=== PATIENT | female | born 1975 | race Caucasian/White ===

== ENCOUNTER → 2017-08-09 | Outpatient (CLI) | payer OTHER ==
[~2017-08-09] MED LIST: ADRENACLIC0.15 MG/0. IM; CIPRO HC OTIC S10 ML OT
[2017-08-09 07:57] LABS: ABSOLUTE BASOPHILS 0.1 thou/uL (0.0-0.2); ABSOLUTE EOSINOPHILS 0.1 thou/uL (0.0-0.7); ABSOLUTE LYMPHOCYTES 1.4 thou/uL (0.8-5.3); ABSOLUTE MONOCYTES 0.4 thou/uL (0.0-1.2); BASOPHILS 0.8 %; HEMATOCRIT 40.9 % (37.0-47.0); HEMOGLOBIN 13.5 gm/dL (12.0-15.0); LYMPHOCYTES 20.6 %; MCH 29.7 pg (26.0-34.0); MCV 90.1 fL (80.0-100.0); MONOCYTES 5.4 %; MPV 9.6 fl. (7.2-11.1); NUCLEATED RBCS 0 /100WBC; PLATELET COUNT* 235 thou/uL (150-400); POLYS 72.2 %; RBC 4.54 mil/uL (4.20-5.00); RDW-CV 13.3 % (10.5-14.5); WBC 6.9 thou/uL (4.0-11.0)
[2017-08-09 08:20] LABS: ALBUMIN 3.7 g/dL (3.4-5.0); ALKALINE PHOSPHATASE 63 U/L (46-116); ANION GAP 7 mmol/L (7-16); BUN 17 mg/dL (7-18); CHLORIDE 105 mmol/L (98-107); CHOLESTEROL 183 mg/dL (<200); CO2 29 mmol/L (21-32); CREATININE 0.9 mg/dL (0.6-1.3); GLUCOSE 228 mg/dL (70-99); HDL CHOLESTEROL 39 mg/dL (>40); LDL CHOLESTEROL 129 mg/dL (<100); POTASSIUM 4.3 mmol/L (3.5-5.1); SGOT 13 U/L (15-37); SGPT 37 U/L (30-65); SODIUM 141 mmol/L (136-145); TC:HDL 4.7 Ratio (Not establshd); TOTAL BILIRUBIN 0.5 mg/dL (<0.1-1.0); TOTAL PROTEIN 7.2 g/dL (6.4-8.2); TRIGLYCERIDE 79 mg/dL (<150); VLDL 16 mg/dL (<40)
[2017-08-09 08:22] LABS: SERUM ASSESSMENT Clear
[2017-08-09 17:11] LABS: GLYCOHEMOGLOBIN (HGB A1C) 7.6 % (4.8-5.6)
== END ==
LOC: M.LAB 07:35
PROVIDERS: Family Medicine
DX: Z00.01 Encounter for general adult medical examination with abnormal findings (principal); I10 Essential (primary) hypertension; E11.65 Type 2 diabetes mellitus with hyperglycemia; R53.83 Other fatigue

== ENCOUNTER → 2018-02-21 | Outpatient (CLI) | payer OTHER | LOC: M.RAD 15:04 | DX: R92.8 Other abnormal and inconclusive findings on diagnostic imaging of breast (principal); N63.20 Unspecified lump in the left breast, unspecified quadrant ==

== ENCOUNTER → 2018-02-22 | Outpatient (CLI) | payer OTHER | LOC: M.ULTRA 10:13 | DX: N63.22 Unspecified lump in the left breast, upper inner quadrant (principal) ==

== ENCOUNTER → 2018-02-24 | Outpatient (CLI) | payer OTHER ==
--- NOTE | 2018-03-05 09:07 | PATH ---
[address] [address] PATHOLOGY RPT PROCEDURE Name: MARTINEZANAM Narayan Room: [facility] Marylu#: [id number] Admission: 02/24/18 Date of : 73 Discharge: Report #: [id number] Path Case #: [id number] [facility] Accession Number: [id number] . 01 Material submitted: . LEFT BREAST CALCIFICATIONS . 01 Clinical history: . Left breast stereotactic biopsy for calcifications . 02 Diagnosis: Left breast calcifications, stereotactic biopsy: - Benign breast tissue with cystic apocrine change, mild chronic inflammation and luminal calcifications, negative for atypia. See comment. . (NORMAN:mml; 02/28/18) QL/02/28/2018 . 02 Comment: Reviewed with Dr. Cam who agrees with the diagnosis. . (NORMAN:mml; 02/28/18) . 02 Electronically signed: . Johnny Mantilla MD, Pathologist NPI- [id number] . 01 Gross description: . Received in formalin labeled "Anam Martinez, left breast stereotactic biopsy," are multiple needle cores of yellow-montiel fibrofatty tissue measuring 2.1 x 1.8 x 0.6 cm in aggregate dimensions. Also received is a plastic cassette containing multiple cores of yellow-montiel fibrofatty tissue measuring 2.4 x 1.2 x 0.4 cm in aggregate dimensions. The tissue in the cassette is transferred to cassette A3, and the remaining tissue is submitted in its entirety in cassettes A1 and A2. The cold ischemic time is 5 minutes. The total formalin fixation time is 29 hours and 50 minutes. (TSD; 02/24/2018) TOB/TOB . 02 Pathologist provided ICD-10: N61.0 . 02 CPT . 598632 Specimen Comment: A courtesy copy of this report has been sent to Specimen Comment: [phone], , [place] [address] PATHOLOGY RPT PROCEDURE Name: ANAM MARTINEZ [id number] Admission: 02/24/18 Date of : 73 Discharge: Report #: [id number] Path Case #: [id number] Specimen Comment: Report sent to ,DR MEJIA / DR PARKER Specimen Comment: A duplicate report has been generated due to demographic updates. Performed at: 01 [facility] [place] [address], [place], [place] [id number] MD Shola Dougherty MD Phone: [phone] Performed at: 02 [facility] [place] [address] [address], [place], [place] [id number] MD Johnny Mantilla MD Phone: [phone]
== END | disposition home or self-care (01) ==
LOC: M.RAD 12:10
DX: D24.2 Benign neoplasm of left breast (principal); N61.0 Mastitis without abscess; R92.1 Mammographic calcification found on diagnostic imaging of breast; Z88.0 Allergy status to penicillin; Z91.040 Latex allergy status; Z79.899 Other long term (current) drug therapy; Z98.890 Other specified postprocedural states

== ENCOUNTER 2018-04-09 15:55 | Emergency (ER) | payer OTHER ==
[~2018-04-09] VITALS: Ht 167.6 cm; Wt 72.6 kg
[2018-04-09] MEDS ORDERED: HYZAAR 50-12.51 EACH PO (16:00)
[2018-04-09 16:15] LABS: ABSOLUTE EOSINOPHILS 0.1 thou/uL (0.0-0.7); ABSOLUTE LYMPHOCYTES 2.2 thou/uL (0.8-5.3); ABSOLUTE MONOCYTES 0.3 thou/uL (0.0-1.2); BASOPHILS 0.3 %; EOSINOPHILS 1.1 %; HEMATOCRIT 40.2 % (37.0-47.0); HEMOGLOBIN 13.5 gm/dL (12.0-15.0); LYMPHOCYTES 28.7 %; MCH 30.2 pg (26.0-34.0); MCHC 33.6 g/dL (28.0-37.0); MCV 89.9 fL (80.0-100.0); MONOCYTES 4.6 %; MPV 9.8 fl. (7.2-11.1); NUCLEATED RBCS 0 /100WBC; PLATELET COUNT* 241 thou/uL (150-400); POLYS 65.3 %; RBC 4.47 mil/uL (4.20-5.00); RDW-CV 13.2 % (10.5-14.5); WBC 7.6 thou/uL (4.0-11.0)
[2018-04-09 16:26] LABS: PROTIME 10.7 Seconds (9.20-11.50)
[2018-04-09 16:32] LABS: ANION GAP 10 mmol/L (7-16); BUN 15 mg/dL (7-18); CHLORIDE 103 mmol/L (98-107); CO2 25 mmol/L (21-32); GLUCOSE 208 mg/dL (70-99); POTASSIUM 3.2 mmol/L (3.5-5.1); SODIUM 138 mmol/L (136-145)
[2018-04-09 16:41] LABS: ALBUMIN 3.8 g/dL (3.4-5.0); ALKALINE PHOSPHATASE 83 U/L (46-116); LIPASE 139 U/L (73-393); NT-PRO BRAIN NAT PEPTIDE 43 pg/mL (<300); SGOT 18 U/L (15-37); SGPT 45 U/L (30-65); TOTAL BILIRUBIN 0.7 mg/dL (<0.1-1.0); TOTAL PROTEIN 6.9 g/dL (6.4-8.2); TROPONIN-I LEVEL <0.06 ng/mL (<0.06)
[2018-04-09] MEDS ORDERED: COREG6.25 MG PO (16:53)
[2018-04-09 17:07] VITALS: BP 111/73
--- NOTE | 2018-04-10 15:38 | EKG ---
[place] [address] ELECTROCARDIOGRAM REPORT Name: ANAM MARTINEZ Room: [facility]#: [id number] Admission: 04/09/18 Attend Phys: Discharge: 04/09/18 Date of : 73 Report #: [id number] THIS REPORT FOR: //name// [facility] ED Test Date: 2018-04-09 Test Time: 15:58:53 Pat Name: ANAM MARTINEZ Department: Room: Gender: F Financial Project Manager: Jerry SMITH : 1975 Requested By: Roshan Hui Order Number: [id number] MD: Hemanth Hansen Measurements Intervals [place] Rate: 128 P: 22 MN: 131 QRS: 6 QRSD: 78 T: 47 QT: 323 QTc: 472 Interpretive Statements Sinus tachycardia ST depression, probably rate related No previous ECG available for comparison Electronically Signed On 04-10-2018 15:37:56 AD COMPOSITOR by Hemanth Hansen [email or web address] <ELECTRONICALLY SIGNED> By: Hemanth Hansen MD, [facility] 04/10/18 1537 1558 1558 Hemanth Hansen MD, FACC /EPI
[2018-04-10 18:07] LABS: T3 UPTAKE 28 % (24-39)
== END 2018-04-09 17:08 | disposition home or self-care (01) ==
LOC: M.ERS 15:55
PROVIDERS: Emergency Medicine
DX: R07.89 Other chest pain (principal); R00.0 Tachycardia, unspecified; I10 Essential (primary) hypertension; Z88.0 Allergy status to penicillin; Z91.040 Latex allergy status; Z88.1 Allergy status to other antibiotic agents; Z86.14 Personal history of Methicillin resistant Staphylococcus aureus infection

== ENCOUNTER → 2018-06-13 | Outpatient (CLI) | payer OTHER ==
[~2018-06-13] MED LIST changes: +COREG6.25 MG PO; +HYZAAR 50-12.51 EACH PO
[2018-06-13 23:06] LABS: GLYCOHEMOGLOBIN (HGB A1C) 8.2 % (4.8-5.6)
== END ==
LOC: M.LAB 15:12
PROVIDERS: Family Medicine
DX: E11.65 Type 2 diabetes mellitus with hyperglycemia (principal)

== ENCOUNTER → 2018-08-02 | Outpatient (CLI) | payer OTHER ==
[~2018-08-02] MED LIST changes: +FLECAINIDE ACET50 M1 PO; +JARDIANCE10 MG PO; +LOPRESSOR50 PO; +PRADAXA150 MG PO
[2018-08-02 12:05] VITALS: BP 115/70
[2018-08-02 12:30] VITALS: BP 136/70
[2018-08-02 12:35] VITALS: BP 131/80
[2018-08-02 12:36] VITALS: BP 117/60
[2018-08-02 12:39] VITALS: BP 122/74
[2018-08-02 12:44] VITALS: BP 118/76
--- NOTE | 2018-08-02 15:26 | TEE ---
[place] [address] TRANSESOPHAGEAL ECHOCARDIOGRAM Name: ANAM MARTINEZ Room: [facility]#: [id number] Admission: 08/02/18 Attend Phys: Hemanth Hansen, Discharge: Date of : 73 Date of Service: 08/02/18 1526 Report #: [id number] THIS REPORT FOR: //name// APPROVED REPORT Study performed: 08/02/2018 12:31:34 EXAM: Transesophageal Echocardiogram Patient Location: Out-Patient Status: routine BSA: 1.84 HR: 67 bpm BP: 136/70 mmHg Rhythm: NSR Other Information Study Quality: Good Indications Atrial Fibrillation Echo Enhancing Agent Indication: Rule out Shunt Agent(s) / Amount(s) Used: Agitated Saline 10 cc Procedure After obtaining informed consent, patient underwent transesophageal echo in the [employer]. Type of Sedation : Conscious Sedation Sedation was administered by Arianna Hung RN. Sedation start time: 1230 Case end Time: 1245 Sedation was achieved intravenously with: Versed (5) Fentanyl (100) Transesophageal probe was inserted and advanced into esophagus without difficulty by Hemanth Hansen MD, FACC. Echo enhancement indication: R/O Septal defect. Echo enhancement agent administered: Agitated Saline The JOANNA was performed without complications. Throughout the procedure, the blood pressure, pulse oximetry, cardiac rhythm, and rate were monitored. The patient tolerated the procedure without adverse effects. Recovery from conscious sedation was uneventful and vital signs were stable. Left Ventricle [place] [id number] TRANSESOPHAGEAL ECHOCARDIOGRAM Name: JUANYINGPONCHO RODRIGUEZ [id number] Admission: 08/02/18 Attend Phys: Hemanth Hansen, Discharge: Date of : 73 Date of Service: 08/02/18 1526 Report #: [id number] The left ventricle is normal size. There is normal LV segmental wall motion. There is normal left ventricular wall thickness. Left ventricular systolic function is normal. LVEF is 60-65%. Right Ventricle The right ventricle is normal size. The right ventricular systolic function is normal. Atria The left atrium size is normal. No thrombus is visualized in the left atrium or appendage. Small PFO is noted. The right atrium size is normal. Aortic Valve The aortic valve is normal in structure. No aortic regurgitation is present. There is no aortic valvular stenosis. Mitral Valve The mitral valve is normal in structure. Trace to mild mitral regurgitation. No evidence of mitral valve stenosis. Tricuspid Valve The tricuspid valve is normal in structure. There is no tricuspid valve regurgitation noted. Pulmonic Valve The pulmonary valve is normal in structure. There is no pulmonic valvular regurgitation. Great Vessels The aortic root is normal in size. Pericardium There is no pericardial effusion. <Conclusion> The left ventricle is normal size. There is normal left ventricular wall thickness. Left ventricular systolic function is normal. LVEF is 60-65%. [place] [address] TRANSESOPHAGEAL ECHOCARDIOGRAM Name: ANAM MARTINEZ Room: [facility]#: [id number] Admission: 08/02/18 Attend Phys: Hemanth Hansen, Discharge: Date of : 73 Date of Service: 08/02/18 1526 Report #: [id number] No thrombus is visualized in the left atrium or appendage. Trace to mild mitral regurgitation. <ELECTRONICALLY SIGNED> By: Hemanth Hansen MD, FACC 08/02/18 1526 1526 1526 Hemanth Hansen MD, FACC /INF
== END | disposition home or self-care (01) ==
LOC: M.CL 11:50
DX: I34.0 Nonrheumatic mitral (valve) insufficiency (principal); I48.91 Unspecified atrial fibrillation; I10 Essential (primary) hypertension; E11.9 Type 2 diabetes mellitus without complications; E78.5 Hyperlipidemia, unspecified; K21.9 Gastro-esophageal reflux disease without esophagitis; Z91.040 Latex allergy status; Z79.899 Other long term (current) drug therapy; Z79.01 Long term (current) use of anticoagulants; Z90.49 Acquired absence of other specified parts of digestive tract; Z90.711 Acquired absence of uterus with remaining cervical stump; Z88.8 Allergy status to other drugs, medicaments and biological substances; Z98.890 Other specified postprocedural states; Z88.0 Allergy status to penicillin; Z83.3 Family history of diabetes mellitus

== ENCOUNTER 2018-08-15 18:43 | Inpatient (IN) | payer OTHER ==
[~2018-08-15] VITALS: Ht 170.2 cm; Wt 73.5 kg
--- NOTE | ~2018-08-15 | CON ---
[address] [address] CONSULTATION Name: ANAM MARTINEZ Room: [address] IN M.R.#: [id number] Admission: 08/15/18 Attend Phys: Júnior Nelson MD Discharge: 08/16/18 Date of : 73 Report #: [id number] THIS REPORT FOR: //name// CC: Júnior Cancino DATE OF SERVICE: 08/16/2018 HISTORY OF PRESENT ILLNESS: This is a 42-year-old female patient who was evaluated by me for headache and visual disturbances. The patient has a longstanding history of migraine headache. They were not very frequent, but when they occurred they were headache associated with some visual disturbances. She underwent a cardiac ablation and then she had a severe headache on the right side. She also had visual disturbances and visual disturbances consisted of hemianopsia. She was also seeing some spots in front of the eyes. Her atrial fibrillation was diagnosed in June and since then, she has been on anticoagulation. Her symptoms are stable, but has not resolved. Headache is better, but she still continued to have what looks like visual disturbances. REVIEW OF SYSTEMS: Indicate she had hysterectomy in the past. She had atrial fibrillation with ablation. One time, she had a kidney stone, another time she had exploratory laparotomy. She does have a history of migraine in the past. She also has a history of hypertension. This was her relevant 14-point review of system. PAST MEDICAL HISTORY: Positive for migraine. FAMILY HISTORY: Negative for early age stroke. SOCIAL HISTORY: She indicates she works here and she does not abuse alcohol. PHYSICAL EXAMINATION: Indicate she is alert. She is responsive. She can follow simple commands. Her speech and concentration looks unremarkable. Cranial nerve examination 2-12 indicates she can count fingers and visual field, but she says it takes much more effort to count finger in the right visual field than the left visual field. Her strength, sensation, reflexes and tones are symmetrical. Cardiac examinations appear to be unremarkable at this stage. She does have a history of atrial fibrillation, no respiratory difficulty or rhonchi was noticed. Blood pressure is 117/77, respiration is 14, pulse is 68, and temperature is 98.2. Pulses are palpable. Her white count is 6.7. She is reasonably well-developed individual and she does not have a thyroid mass. She has no ENT problems. It looks like she had only a perfusion study in the Emergency Room and that was unremarkable. Although statistically the most common cause for this will be recurrence of migraine, but a posterior [place] [address] CONSULTATION Name: ANAM MARTINEZN Room: [address] IN [facility].#: [id number] Admission: 08/15/18 Attend Phys: Júnior Nelson MD Discharge: 08/16/18 Date of : 73 Report #: [id number] excluded because of the patient's history of persistent visual deficit and that is one of the common site for embolization. She is anticoagulated and that is protective against any stroke, but I think we need to exclude that. An ophthalmology etiology also needs to be excluded in this patient. RECOMMENDATIONS: I discussed with the patient the situation. She understands that. We will go ahead and do an MRI and MRA to exclude any pathology in that regard. I ordered that workup. I also told her that she needs an ophthalmology examination. 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 If she is dismissed today, she should have an ophthalmology examination today and we can get her that appointment. Otherwise, she will need that whenever it can be arranged. The patient understands all of this and is agreeable with that plan. By: [id number] [id number] Worrell MD /patricia
[2018-08-15 19:01] VITALS: BP 133/84
[2018-08-15 19:47] LABS: ABSOLUTE BASOPHILS 0.1 thou/uL (0.0-0.2); ABSOLUTE EOSINOPHILS 0.1 thou/uL (0.0-0.7); ABSOLUTE LYMPHOCYTES 2.2 thou/uL (0.8-5.3); ABSOLUTE MONOCYTES 0.4 thou/uL (0.0-1.2); EOSINOPHILS 1.9 %; HEMATOCRIT 36.5 % (37.0-47.0); MCH 29.9 pg (26.0-34.0); MCHC 32.7 g/dL (28.0-37.0); MCV 91.3 fL (80.0-100.0); MPV 9.7 fl. (7.2-11.1); NUCLEATED RBCS 0 /100WBC; PLATELET COUNT* 204 thou/uL (150-400); POLYS 59.1 %; RDW-CV 13.4 % (10.5-14.5); WBC 6.7 thou/uL (4.0-11.0)
[2018-08-15 19:51] LABS: APTT 28.5 Seconds (25.0-31.3); PROTIME 10.2 Seconds (9.20-11.50)
[2018-08-15 20:01] LABS: ALBUMIN 3.7 g/dL (3.4-5.0); CALCIUM 8.7 mg/dL (8.5-10.1); CREATININE 1.1 mg/dL (0.6-1.3); POTASSIUM 3.6 mmol/L (3.5-5.1); TOTAL BILIRUBIN 0.2 mg/dL (<0.1-1.0); TOTAL PROTEIN 6.9 g/dL (6.4-8.2)
[2018-08-15 20:03] LABS: TROPONIN-I LEVEL 1.24 ng/mL (<0.06)
--- NOTE | 2018-08-15 22:11 | NUR ---
PT UP TO DATE ON POC. AT BEDSIDE. VSS. EMPLOYEE RELATIONS SPECIALIST UPDATED PT ON LAB WORK AND ADDITIONAL TESTING ORDERED
--- NOTE | 2018-08-15 23:15 | NUR ---
PT UP TO DATE ON POC.
[2018-08-16 00:28] VITALS: BP 121/70
--- NOTE | 2018-08-16 01:27 | NUR ---
ASSUMED CARE OF PATIENT FROM ER. UP AD CHRIST, NO S/S DISTRESS. SAYS THE VISION CHANGES ARE INTERMITTENT. LASTING FOR LONG 15 MINUTES. NO OTHER CONCERNS AT THIS TIME. GROIN SITE FROM ABLATION HAS NEW DRESSING APPLIED BY PATIENT AT HOME. C/D/I. WAITING ON REPEAT TROPONIN. WILL CONTINUE TO MONITOR.
[2018-08-16 04:00] VITALS: BP 123/69
[2018-08-16 08:00] VITALS: BP 117/77
--- NOTE | 2018-08-16 11:40 | NUR ---
Nutrition: Consult received for diet instruction. Labs, RX, Hx noted. Wt: 161#. Alb 3.7. Spoke with RN Abimael - feel pt doesn't need any diet instruction at this time. Pt appears at low nutrition risk. RD available if needed.
[2018-08-16 13:04] VITALS: BP 128/77
[2018-08-16] MEDS ORDERED: TOPROL XL50 MG PO (15:33)
[2018-08-16 15:44] VITALS: BP 128/77
--- NOTE | 2018-08-16 15:53 | EKG ---
[place] [address] ELECTROCARDIOGRAM REPORT Name: ANAM MARTINEZ Room: [address] ADM IN .R.#: [id number] Admission: 08/15/18 Attend Phys: Júnior Nelson MD Discharge: Date of : 73 Report #: [id number] THIS REPORT FOR: //name// [facility] ED Test Date: 2018-08-15 Test Time: 18:57:54 Pat Name: ANAM MARTINEZ Department: Room: [facility] Gender: F Management Tech: : 1975 Requested By: Valeria Garcia Order Number: [id number] MD: Hemanth Hansen Measurements Intervals [place] Rate: 79 P: 42 CO: 182 QRS: -10 QRSD: 96 T: 185 QT: 492 QTc: 565 Interpretive Statements Sinus rhythm Nonspecific T abnormalities, lateral leads Prolonged QT interval Baseline wander in lead(s) V6 Compared to ECG 04/09/2018 15:58:53 T-wave abnormality now present Prolonged QT interval now present Sinus tachycardia no longer present ST (T wave) deviation no longer present Electronically Signed On 08-16-2018 15:53:35 CDT by Hemanth Hansen [email or web address] <ELECTRONICALLY SIGNED> By: Hemanth Hansen MD, FAC 08/16/18 1553 1857 185 Hemanth Hansen MD, [facility] /EPI
--- NOTE | 2018-08-16 15:54 | EKG ---
[place] [address] ELECTROCARDIOGRAM REPORT Name: ANAM MARTINEZ Room: [address] ADM IN .R.#: [id number] Admission: 08/15/18 Attend Phys: Júnior Nelson MD Discharge: Date of : 73 Report #: [id number] THIS REPORT FOR: //name// [facility] ED Test Date: 2018-08-15 Test Time: 23:44:17 Pat Name: ANAM MARTINEZ Department: Room: [facility] Gender: F Lead Customer Service Representative: NAVI : 1975 Requested By: Cassidy Maradiaga Order Number: [id number] MD: Hemanth Hansen Measurements Intervals [place] Rate: 74 P: 42 NC: 176 QRS: -15 QRSD: 99 T: 44 QT: 432 QTc: 480 Interpretive Statements Sinus rhythm Borderline left axis deviation Borderline T wave abnormalities Compared to ECG 04/09/2018 15:58:53 T-wave abnormality now present Sinus tachycardia no longer present ST (T wave) deviation no longer present Electronically Signed On 08-16-2018 15:53:55 CDT by Hemanth Hansen [email or web address] <ELECTRONICALLY SIGNED> By: Hemanth Hansen MD, FAC 08/16/18 1553 2344 2344 Hemanth Hansen MD, [facility] /EPI
[2018-08-16] MEDS ORDERED: JARDIANCE25 MG PO (16:34)
--- NOTE | 2018-08-16 16:55 | NUR ---
ORDER RECEIVED TO DISCHARGE PATIENT HOME TO SELF. IV AND TELEMTRY PACK REMOVED. EXTENSIVE TIME SPENT WITH MD AND PATINET TO ENSURE ACCURATE HOME MEDICATION LIST. HOURLY ROUNDING COMPLETED FOR PATIENT SAFETY AND PATIET INNOAPPARENT SIGNS OF DISTRESS A TTIME OF DISCHARGE. PATIENT CHOSE TO AMBULATE TO AWAITING CARE WITH SPOUSE PRESENT AND ESCORTED BY RN. DC TIME OF 16:50
--- NOTE | 2018-08-17 09:59 | CON ---
[address] [address] CONSULTATION Name: JUANANAM JENNIFER Room: [address] IN M.R.#: [id number] Admission: 08/15/18 Attend Phys: Júnior Nelson MD Discharge: 08/16/18 Date of : 73 Report #: [id number] THIS REPORT FOR: //name// CC: Júnior Cancino DO CARDIOLOGY CONSULTATION INDICATION: Elevated troponin. HISTORY OF PRESENT ILLNESS: The patient is a very pleasant 42-year-old white female, well known to myself. She had ablation for atrial fibrillation/atrial tachycardia on 08/12/2018. Postoperatively, she had a headache with some visual field deficits and was seen in the Emergency Room. Neurologic evaluation has been unremarkable. She still has the headache. Her visual field deficits are improving. She, in this setting, had an elevated troponin of 1.48. EKG showed sinus rhythm without acute ST or T-wave abnormalities. She has a fullness in her midsternal region. She is not having russell chest pain. The discomfort has been persistent. She is without other cardiac complaints at this time. PAST MEDICAL HISTORY: 1. Atrial fibrillation/atrial tachycardia, status post ablation. 2. Chronic anticoagulation. 3. Diabetes type 2. 4. History of hysterectomy. 5. Left hip repair. 6. Cholecystectomy. 7. Tonsillectomy. 8. Kidney stone removal. 9. D and C. 10. Exploratory laparotomy. 11. GERD. FAMILY HISTORY: Noncontributory. SOCIAL HISTORY: The patient is a lifelong nonsmoker. She does not drink alcohol. ALLERGIES: BIAXIN, LATEX AND PENICILLIN. CURRENT MEDICATIONS: Flecainide 50 mg p.o. b.i.d., Dabigatran 150 mg p.o. b.i.d., metoprolol tartrate 50 mg p.o. b.i.d. and Jardiance 10 mg p.o. b.i.d. PHYSICAL EXAMINATION: VITAL SIGNS: Stable. Blood pressure 128/77 and pulse 71 and regular. GENERAL: This is a pleasant lady in no distress[place] [address] CONSULTATION Name: ANAM MARTINEZ Room: [address]#: [id number] Admission: 08/15/18 Attend Phys: Júnior Nelson MD Discharge: 08/16/18 Date of : 73 Report #: [id number] HEENT: Extraocular muscles intact. Mucous membranes are moist. NECK: Examination of the neck shows no jugular venous distention. There are no carotid bruits. CHEST: Examination of the chest reveals clear lung tesfaye, without wheezes or rales. CARDIAC EXAMINATION: Reveals a regular rate and rhythm, without gallop, rub or murmur. ABDOMEN: Examination of the abdomen reveals normal bowel sounds. The abdomen is soft and nontender. EXTREMITIES: Examination of the extremities shows no edema. Peripheral pulses are 2+ and palpable. SKIN: Warm and dry. LABORATORY DATA: A 12-lead EKG shows sinus rhythm, with no acute ST or T-wave abnormalities. Chest x-ray shows clear lung tesfaye with possible cardiomegaly. A followup CT scan showed no evidence of pericardial effusion. IMPRESSION AND RECOMMENDATIONS: 1. Elevated troponin secondary to recent ablation. I doubt this represents any acute coronary syndrome. No further cardiac evaluation at this time. 2. Chest pain, likely due to residual from a recent ablation therapy. This should resolve on its own. We will follow clinically. 3. 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 We would recommend to treat this clinically. 4. Gastroesophageal reflux disease, presently stable. 5. Diabetes per primary physician. PLAN: The patient appears stable from a cardiac standpoint. Okay to discharge to home from a cardiac standpoint. Follow up as scheduled. <ELECTRONICALLY SIGNED> By: Hemanth Hansen MD, FACC 08/17/18 0959 1408 0225Micshemar Hansen MD, FACC /nt
== END 2018-08-16 16:45 | disposition home or self-care (01) | DRG 125 ==
LOC: M.ERS 18:43 → M.2W 23:39 → M.TBA-ER 23:39 → M.2W 08-16 00:24
PROVIDERS: Nurse Practitioner Family; ADMIT Internal Medicine
DX: H53.9 Unspecified visual disturbance (principal); I10 Essential (primary) hypertension; I48.91 Unspecified atrial fibrillation; E11.9 Type 2 diabetes mellitus without complications; R51 Headache; K21.9 Gastro-esophageal reflux disease without esophagitis; Z86.14 Personal history of Methicillin resistant Staphylococcus aureus infection; Z87.442 Personal history of urinary calculi; Z90.710 Acquired absence of both cervix and uterus; Z90.49 Acquired absence of other specified parts of digestive tract; Z79.899 Other long term (current) drug therapy; Z88.0 Allergy status to penicillin; Z88.1 Allergy status to other antibiotic agents; Z91.040 Latex allergy status

== ENCOUNTER → 2018-08-29 | Outpatient (CLI) | payer OTHER ==
[~2018-08-29] MED LIST changes: +JARDIANCE25 MG PO; +TOPROL XL50 MG PO
== END ==
LOC: M.RAD 12:25
DX: R92.8 Other abnormal and inconclusive findings on diagnostic imaging of breast (principal)

== ENCOUNTER → 2019-03-07 | Outpatient (CLI) | payer OTHER ==
[2019-03-07 08:10] LABS: ABSOLUTE BASOPHILS 0.1 thou/uL (0.0-0.2); ABSOLUTE EOSINOPHILS 0.1 thou/uL (0.0-0.7); ABSOLUTE LYMPHOCYTES 1.7 thou/uL (0.8-5.3); ABSOLUTE MONOCYTES 0.4 thou/uL (0.0-1.2); ABSOLUTE NEUTROPHILS 5.1 thou/uL (1.6-8.1); BASOPHILS 0.7 %; EOSINOPHILS 0.9 %; HEMATOCRIT 40.5 % (37.0-47.0); HEMOGLOBIN 13.7 gm/dL (12.0-15.0); LYMPHOCYTES 22.9 %; MCH 30.4 pg (26.0-34.0); MCV 89.4 fL (80.0-100.0); MONOCYTES 4.9 %; MPV 9.1 fl. (7.2-11.1); NUCLEATED RBCS 0 /100WBC; PLATELET COUNT* 222 thou/uL (150-400); POLYS 70.6 %; RBC 4.52 mil/uL (4.20-5.00); WBC 7.2 thou/uL (4.0-11.0)
[2019-03-07 08:28] LABS: ALBUMIN 3.8 g/dL (3.4-5.0); ALKALINE PHOSPHATASE 62 U/L (46-116); ANION GAP 9 mmol/L (7-16); BUN 13 mg/dL (7-18); CALCIUM 9.2 mg/dL (8.5-10.1); CHLORIDE 104 mmol/L (98-107); CO2 25 mmol/L (21-32); CREATININE 0.8 mg/dL (0.6-1.3); GLUCOSE 228 mg/dL (70-99); POTASSIUM 3.8 mmol/L (3.5-5.1); SGOT 22 U/L (15-37); SGPT 53 U/L (30-65); SODIUM 138 mmol/L (136-145); TOTAL BILIRUBIN 0.5 mg/dL (<0.1-1.0); TOTAL PROTEIN 7.2 g/dL (6.4-8.2)
[2019-03-07 08:55] LABS: CHOLESTEROL 200 mg/dL (<200); HDL CHOLESTEROL 36 mg/dL (>40); LDL CHOLESTEROL 144 mg/dL (<100); TC:HDL 5.6 Ratio (Not establshd); TRIGLYCERIDE 104 mg/dL (<150); VLDL 21 mg/dL (<40)
[2019-03-07 08:57] LABS: SERUM ASSESSMENT Clear
[2019-03-08 02:07] LABS: GLYCOHEMOGLOBIN (HGB A1C) 8.1 % (4.8-5.6)
== END ==
LOC: M.LAB 07:54
PROVIDERS: Nurse Practitioner Family
DX: E11.65 Type 2 diabetes mellitus with hyperglycemia (principal); I10 Essential (primary) hypertension; E78.2 Mixed hyperlipidemia

== ENCOUNTER → 2019-08-31 | Outpatient (CLI) | payer OTHER ==
[~2019-08-31] MED LIST changes: +TRADJENTA5 MG; +XARELTO10 M1 PO
== END ==
LOC: M.LAB 09:53
DX: Z03.818 Encounter for observation for suspected exposure to other biological agents ruled out (principal)

== ENCOUNTER 2019-09-02 17:08 | Emergency (ER) | payer OTHER ==
[~2019-09-02] VITALS: Ht 167.6 cm; Wt 72.6 kg
[~2019-09-02 17:08] MED LIST changes: -TRADJENTA5 MG; -XARELTO10 M1 PO
[2019-09-02] MEDS ORDERED: JARDIANCE10 MG PO ×2 (17:25)
[2019-09-02] MEDS ORDERED: XARELTO10 M1 PO (17:25)
[2019-09-02] MEDS ORDERED: TRADJENTA5 MG (17:27)
[2019-09-02 17:30] LABS: ABSOLUTE BASOPHILS 0.1 thou/uL (0.0-0.2); ABSOLUTE EOSINOPHILS 0.1 thou/uL (0.0-0.7); ABSOLUTE LYMPHOCYTES 2.1 thou/uL (0.8-5.3); ABSOLUTE MONOCYTES 0.4 thou/uL (0.0-1.2); ABSOLUTE NEUTROPHILS 5.5 thou/uL (1.6-8.1); BASOPHILS 1.2 %; EOSINOPHILS 0.9 %; HEMATOCRIT 40.2 % (37.0-47.0); HEMOGLOBIN 13.5 gm/dL (12.0-15.0); LYMPHOCYTES 25.6 %; MCH 29.8 pg (26.0-34.0); MCHC 33.6 g/dL (28.0-37.0); MCV 88.7 fL (80.0-100.0); MONOCYTES 5.2 %; MPV 9.9 fl. (7.2-11.1); NUCLEATED RBCS 0 /100WBC; PLATELET COUNT* 233 thou/uL (150-400); POLYS 67.1 %; RBC 4.53 mil/uL (4.20-5.00); RDW-CV 13.4 % (10.5-14.5); WBC 8.2 thou/uL (4.0-11.0)
[2019-09-02 18:45] VITALS: BP 141/70
[2019-09-02 18:54] LABS: ANION GAP 10 mmol/L (7-16); BUN 11 mg/dL (7-18); CALCIUM 8.9 mg/dL (8.5-10.1); CHLORIDE 106 mmol/L (98-107); CO2 26 mmol/L (21-32); CREATININE 0.9 mg/dL (0.6-1.3); GLUCOSE 227 mg/dL (70-99); POTASSIUM 3.5 mmol/L (3.5-5.1); SODIUM 142 mmol/L (136-145)
[2019-09-02 18:59] LABS: PROTIME 9.9 Seconds (9.20-11.50)
[2019-09-02 19:18] LABS: ALBUMIN 3.8 g/dL (3.4-5.0); ALKALINE PHOSPHATASE 54 U/L (46-116); CK-MB MASS < 0.5 ng/mL (<0.5-3.6); LIPASE 124 U/L (73-393); NT-PRO BRAIN NAT PEPTIDE 66 pg/mL (<300); SGOT 12 U/L (15-37); SGPT 29 U/L (30-65); TOTAL BILIRUBIN 0.2 mg/dL (<0.1-1.0); TOTAL PROTEIN 6.8 g/dL (6.4-8.2)
--- NOTE | 2019-09-04 14:51 | EKG ---
[place] [address] ELECTROCARDIOGRAM REPORT Name: YING MARTINEZDENEEN JENNIFER Room: [facility]#: [id number] Admission: 09/02/19 Attend Phys: Discharge: 09/02/19 Date of : 73 Date of Service: 09/02/19 1713 Report #: [id number] THIS REPORT FOR: //name// [facility] ED Test Date: 2019-09-02 Test Time: 17:13:02 Pat Name: ANAM MARTINEZ Department: Room: Gender: F Manager Commercial: TP : 1975 Requested By: Juan Jackson Order Number: [id number] MD: Brandon Mann Measurements Intervals [place] Rate: 92 P: 5 DE: 144 QRS: -3 QRSD: 81 T: 100 QT: 350 QTc: 433 Interpretive Statements Sinus rhythm Atrial premature complex Nonspecific T abnrm, anterolateral leads Baseline wander in lead(s) V5 Compared to ECG 08/15/2018 23:44:17 Atrial premature complex(es) now present T-wave abnormality no longer present Electronically Signed On 09-04-2019 14:49:39 CDT by Brandon Mann [email or web address] <ELECTRONICALLY SIGNED> By: Brandon Mann MD, [facility] 09/04/19 1449 171 171 Brandon Mann MD, FAC /EPI
== END 2019-09-02 18:45 | disposition home or self-care (01) ==
LOC: M.ERS 17:08
PROVIDERS: Family Medicine
DX: R00.2 Palpitations (principal); K21.9 Gastro-esophageal reflux disease without esophagitis; I48.91 Unspecified atrial fibrillation; I10 Essential (primary) hypertension; E11.9 Type 2 diabetes mellitus without complications; Z90.710 Acquired absence of both cervix and uterus; Z96.642 Presence of left artificial hip joint; Z87.442 Personal history of urinary calculi; Z90.89 Acquired absence of other organs; Z88.0 Allergy status to penicillin; Z91.040 Latex allergy status; Z88.1 Allergy status to other antibiotic agents; Z86.14 Personal history of Methicillin resistant Staphylococcus aureus infection